=== PATIENT | female | born 1985 | race Caucasian/White ===

== ENCOUNTER → 2017-05-19 | Day surgery (SDC) | payer OTHER ==
[2017-05-19] VITALS (7 sets, daily range): BP systolic 146–164; BP diastolic 78–108; PULSE 88–112; RESP 14–20; O2SAT 92–97
[~2017-05-19] VITALS: Ht 149.9 cm; Wt 97.2 kg
[~2017-05-19] MED LIST: ALBU8.5H2 INHALATION; Bismuth Subgallate Powder 25 Gm TOPICAL ONE; Bupivacaine-MPF 0.5% 30 mL Inj INFILTRATE ONE; Dexamethasone 10 mg/mL Inj IV ONE; Dexamethasone 4 mg/mL Inj IVPUSH PRN; Dexamethasone Inj 20 MG in 0.9% Sodium Chloride-Pha MIX 50 ML IV ONE; EPHEDrine Sulfate 50 mg/mL Inj IVPUSH PRN; ESCI5SOL4 PO; HYDR25TA4 PO; HYDROmorphone 1 mg/mL Inj IVPUSH PRN; Lactated Ringer's 1,000 ML IV ONE; Lactated Ringer's 1,000 ML IV SCH; Lactated Ringer's 500 ML IV PRN; Lactated Ringer's 500 ML IV SCH; Lidocaine 1%-Epi 1:100,000 20 mL Inj INJ ONE; METO-394 PO; MetoCLOpramide 5 mg/mL 2 mL Inj IVPUSH PRN; Ondansetron 2 mg/mL 2 mL Inj IVPUSH PRN; Ondansetron 2 mg/mL 2 mL Inj ONE; Phenylephrine 10,000 mCg/mL Inj IVPUSH PRN; Propofol 10,000 mCg/mL 20 mL Inj ONE; Rocuronium 10 mg/mL 5 mL Inj ONE; Succinylcholine Chloride 20 mg/mL 5 mL Inj ONE; fentaNYL-PF 50 mCg/mL 2 mL Inj IVPUSH PRN; fentaNYL-PF 50 mCg/mL 2 mL Inj ONE
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
--- NOTE | 2017-05-19 11:24 | PCM.ANEP1 ---
Post Anesthesia PACU Phase 1 Assessment Vital Signs Vital Signs Date Time Temp Pulse Resp B/P Pulse Ox O2 Delivery O2 Flow Rate FiO2 05/19/17 08:19 35.8 103 20 95 Room Air Anesthetic Administered: GA Level of Alertness: Sleepy, easy to arouse Pain: No Nausea or Vomiting: No CV Function & Hydration Stable: Yes Airway Device: Oxygen Delivery: Nasal Cannula Lungs: Diminished, Wheezes (occasional) PACU Phase 2 Assessment Complications: No Patient Instructions Provided: Yes Jorge Duncan MD May 19, 2017 11:24
--- NOTE | 2017-05-19 19:11 | OP ---
[address] [id number] OPERATIVE REPORT PATIENT: MELINDA BENNETT : 1985 MR#: [id number] ADMIT: 05/19/2017 JOB ID: [id number] DATE OF SURGERY: 05/19/2017 SURGEON: Jose A Mahajan MD PREOPERATIVE DIAGNOSIS(ES): Chronic tonsillitis, respiratory obstruction. POSTOPERATIVE DIAGNOSIS(ES): Chronic tonsillitis, respiratory obstruction. INDICATIONS FOR OPERATION: Chronic tonsillitis, respiratory obstruction. OPERATION PERFORMED: Tonsillectomy. OPERATIVE FINDINGS: 3+ tonsils with tonsil stones. Zero adenoids. OPERATIVE PROCEDURE: With the patient supine on the operating table, general orotracheal anesthesia was used. Tongue and soft palate retracted. Small adenoids noted. Soft palate released. Bilateral extracapsular cautery technique tonsillectomy performed. Hemostasis with bismuth paste and suction cautery, 2 stitches of 2-0 chromic sutures were then used bilaterally to close the tonsil fossa and add to hemostasis. Procedure terminated. Patient turned over to anesthesia for emergence from anesthetics without known complications.
== END | disposition home or self-care (01) ==
LOC: SAS 07:47
PROVIDERS: ATTEND Otolaryngology Facial Plastic Surgery
DX: J35.01 Chronic tonsillitis (principal); J36 Peritonsillar abscess; I10 Essential (primary) hypertension; J45.909 Unspecified asthma, uncomplicated; K21.9 Gastro-esophageal reflux disease without esophagitis; F17.210 Nicotine dependence, cigarettes, uncomplicated; Z87.442 Personal history of urinary calculi
CPT/HCPCS: 42826; J0330; J1100; J1170; J2405; J2704; J3010; J7120